=== PATIENT | male | born 1950 | race American Indian/Alaskan Native ===

== ENCOUNTER 2017-01-22 02:03 | Emergency (ER) | payer OTHER, MEDICARE ==
[2017-01-22] MEDS ORDERED: Aspirin 81 MG Tab.Chew PO ONE (02:09)
[2017-01-22] MEDS ORDERED: Albuterol/Ipratropium 3.0-0.5 MG/3 ML Neb Soln NEB ONE ×2 (02:16→03:33)
[2017-01-22] MEDS ORDERED: methylPREDNISolone Sodium Succinate 125 MG/2 ML SDV IVPUSH ONE (03:30)
[2017-01-22 05:42] VITALS: BP 176/88
--- NOTE | 2017-01-22 06:30 | EDM.PDOC ---
ED HISTORY OF PRESENT ILLNESS - General Chief Complaint: Cardiovascular Problem Stated Complaint: SHORTNESS OF BREATH, RACING HEART Time Seen by Provider: 01/22/17 02:15 - History of Present Illness INITIAL COMMENTS - FREE TEXT/NARRATIVE: HISTORY AND PHYSICAL: History of present illness: Patient 66-year-old male was a concern of shortness of breath patient denies chest pain nausea vomiting fever chills or other concern Review of systems: As per history of present illness and below otherwise all systems reviewed and negative. Past medical history: As per history of present illness and as reviewed below otherwise noncontributory. Surgical history: As per history of present illness and as reviewed below otherwise noncontributory. Social history: No reported history of drug or alcohol abuse. Family history: As per history of present illness and as reviewed below otherwise noncontributory. Physical exam: HEENT: Atraumatic, normocephalic, pupils reactive, negative for conjunctival pallor or scleral icterus, mucous membranes moist, throat clear, neck supple, nontender, trachea midline. Lungs: End expiratory wheezing noted bilaterally breath sounds equal bilaterally , chest nontender. Heart: S1S2, regular, negative for clicks, rubs, or JVD. Abdomen: Soft, nondistended, nontender. Negative for masses or hepatosplenomegaly. Negative for costovertebral tenderness. Pelvis: Stable nontender. Genitourinary: Deferred. Rectal: Deferred. Extremities: Atraumatic, negative for cords or calf pain. Neurovascular unremarkable. Neuro: Awake, alert, oriented. Cranial nerves II through XII unremarkable. Cerebellum unremarkable. Motor and sensory unremarkable throughout. Exam nonfocal. Diagnostics: CBC CMP troponin BNP PT/INR chest x-ray EKG Therapeutics: IV O2 monitor albuterol ipratropium nebulizer Impression: #1 dyspnea #2 COPD #3 hypoxemia Definitive disposition and diagnosis as appropriate pending reevaluation and review of above. - Related Data Allergies/ADRs: Allergies Allergy/AdvReac Type Severity Reaction Status Date / Time Penicillins Allergy Hives Verified 01/22/17 02:09 Home Meds: Home Meds Aspirin [[place] Aspirin] 81 mg PO DAILY 01/29/15 [History] Clopidogrel [Plavix] 75 mg PO QPM 01/29/15 [History] Lisinopril 20 mg PO DAILY 01/29/15 [History] Metoprolol Tartrate 75 mg PO BID 01/29/15 [History] atorvaSTATin Calcium [Atorvastatin Calcium] 40 mg PO BEDTIME 01/29/15 [History] Omeprazole 20 mg PO QAM 01/31/16 [History] Levothyroxine 0.5 tab PO ACBREAKFAST 01/22/17 [History] Testosterone Cypionate [Depo-Testosterone] 1 ml IM ASDIRECTED 01/22/17 [History] Past Medical History HEENT History: Reports: Hard of hearing, Impaired vision Cardiovascular History: Reports: High cholesterol, Hypertension, [place] - Infectious Disease History Infectious Disease History: Reports: Chicken pox, Measles, Mumps Other Infectious Disease History: childhood - Past Surgical History HEENT Surgical History: Reports: Other (see below) Other HEENT Surgeries/Procedures: Dentures Cardiovascular Surgical History: Reports: None Social & Family History - Family History Family Medical History: Noncontributory - Tobacco Use Smoking Status *Q: Current Every Day Smoker Years of Tobacco use: 45 Packs/Tins Daily: 1.5 - Caffeine Use Caffeine Use: Reports: Coffee, Soda Caffeine Use Comment: 10+ drinks/day - Alcohol Use Days Per Week of Alcohol Use: 0 Number of Drinks Per Day: 0 Total Drinks Per Week: 0 - Recreational Drug Use Recreational Drug Use: No Drug Use in Last 12 Months: No ED ROS GENERAL - Review of Systems Review Of Systems: ROS reveals no pertinent complaints other than HPI. ED EXAM, GENERAL - Physical Exam Exam: See Below (See dictation) Course - Vital Signs Text/Narrative:: Discuss with patient admission for observation patient declines feels better request discharge for follow up PA Last Recorded V/S: Last Vital Signs Temp 36.6 C 01/22/17 05:35 Pulse 87 01/22/17 05:35 Resp 20 01/22/17 05:35 BP 176/88 H 01/22/17 05:35 Pulse Ox 92 L 01/22/17 05:35 - Orders/Labs/Meds Orders: Active Orders 24 hr Category Date Time Status EKG 12 Lead [EKG Documentation Completion] [RC] STAT Care 01/22/17 02:07 Active RT Aerosol Therapy [RC] ASDIRECTED Care 01/22/17 02:16 Active RT Aerosol Therapy [RC] ASDIRECTED Care 01/22/17 03:33 Active Chest 1V Frontal [CR] Stat Exams 01/22/17 02:07 Taken Labs: Laboratory Tests 01/22/17 01/22/17 01/22/17 Range/Units 02:05 02:05 02:05 WBC 8.66 (4.0-11.0) K/uL RBC 5.58 (4.50-5.90) M/uL Hgb 17.2 H (13.0-17.0) g/dL Hct 50.1 H (38.0-50.0) % MCV 89.8 (80.0-98.0) fL MCH 30.8 (27.0-32.0) pg MCHC 34.3 (31.0-37.0) g/dL RDW Std Deviation 45.3 (28.0-62.0) fl RDW Coeff of Son 14 (11.0-15.0) % Plt Count 203 (150-400) K/uL MPV 10.20 (7.40-12.00) fL Neut % (Auto) 49.7 (48.0-80.0) % Lymph % (Auto) 40.1 H (16.0-40.0) % [place] % (Auto) 6.8 (0.0-15.0) % Eos % (Auto) 2.9 (0.0-7.0) % Baso % (Auto) 0.5 (0.0-1.5) % Neut # 4.3 (1.4-5.7) K/uL Lymph # 3.5 H (0.6-2.4) K/uL [place] # 0.6 (0.0-0.8) K/uL Eos # 0.3 (0.0-0.7) K/uL Baso # 0.0 (0.0-0.1) K/uL Nucleated RBC % 0.0 /100WBC Nucleated RBCs # 0 K/uL INR (0.86-1.11) Sodium 141 (136-146) mmol/L Potassium 3.6 (3.5-5.1) mmol/L Chloride 101 (98-110) mmol/L Carbon Dioxide 30 (21-31) mmol/L BUN 11 (6.0-23.0) mg/dL Creatinine 1.5 (0.6-1.5) mg/dL Est Cr Clr Drug Dosing 53.17 mL/min Estimated GFR (MDRD) 46.8 ml/min Glucose 97 (60-110) mg/dL Calcium 9.5 (8.8-10.8) mg/dL Total Bilirubin 1.2 (0.1-1.5) mg/dL AST 14 (5-40) IU/L ALT 15 (8-54) IU/L Alkaline Phosphatase 51 (40-150) Troponin I < 0.10 (0.0-0.29) NG/ML B-Natriuretic Peptide (<100) PG/ML Total Protein 7.5 (6.0-8.0) g/dL Albumin 4.2 (3.4-4.8) g/dL Globulin 3.3 (2.0-3.5) g/dL Albumin/Globulin Ratio 1.3 (1.3-2.8) 01/22/17 01/22/17 Range/Units 02:05 02:05 WBC (4.0-11.0) K/uL RBC (4.50-5.90) M/uL Hgb (13.0-17.0) g/dL Hct (38.0-50.0) % MCV (80.0-98.0) fL MCH (27.0-32.0) pg MCHC (31.0-37.0) g/dL RDW Std Deviation (28.0-62.0) fl RDW Coeff of Son (11.0-15.0) % Plt Count (150-400) K/uL MPV (7.40-12.00) fL Neut % (Auto) (48.0-80.0) % Lymph % (Auto) (16.0-40.0) % [place] % (Auto) (0.0-15.0) % Eos % (Auto) (0.0-7.0) % Baso % (Auto) (0.0-1.5) % Neut # (1.4-5.7) K/uL Lymph # (0.6-2.4) K/uL [place] # (0.0-0.8) K/uL Eos # (0.0-0.7) K/uL Baso # (0.0-0.1) K/uL Nucleated RBC % /100WBC Nucleated RBCs # K/uL INR 1.01 (0.86-1.11) Sodium (136-146) mmol/L Potassium (3.5-5.1) mmol/L Chloride (98-110) mmol/L Carbon Dioxide (21-31) mmol/L BUN (6.0-23.0) mg/dL Creatinine (0.6-1.5) mg/dL Est Cr Clr Drug Dosing mL/min Estimated GFR (MDRD) ml/min Glucose (60-110) mg/dL Calcium (8.8-10.8) mg/dL Total Bilirubin (0.1-1.5) mg/dL AST (5-40) IU/L ALT (8-54) IU/L Alkaline Phosphatase (40-150) Troponin I (0.0-0.29) NG/ML B-Natriuretic Peptide 100 (<100) PG/ML Total Protein (6.0-8.0) g/dL Albumin (3.4-4.8) g/dL Globulin (2.0-3.5) g/dL Albumin/Globulin Ratio (1.3-2.8) Meds: Medications Discontinued Medications Generic Name Dose Route Start Last Admin Trade Name Freq PRN Reason Stop Dose Admin Albuterol/Ipratropium 3 ml 01/22/17 02:16 01/22/17 02:36 Duoneb 3.0-0.5 Mg/3 Ml NEB 01/22/17 02:17 3 ml ONETIME ONE Administration Albuterol/Ipratropium 3 ml 01/22/17 03:33 01/22/17 03:44 Duoneb 3.0-0.5 Mg/3 Ml NEB 01/22/17 03:34 3 ml ONETIME ONE Administration Aspirin 324 mg 01/22/17 02:09 01/22/17 02:21 Aspirin PO 01/22/17 02:10 324 mg ONETIME ONE Administration Methylprednisolone Sodium Succinate 125 mg 01/22/17 03:30 01/22/17 03:44 Solu-Medrol IVPUSH 01/22/17 03:31 125 mg ONETIME ONE Administration Departure - Departure Time of Disposition: 06:29 Disposition: Home, Self-Care 01 Clinical Impression: COPD, Moderate chronic obstructive pulmonary disease Instructions: Chronic Obstructive Pulmonary Disease Exacerbation, [id number] Referrals: PCP,None [Primary Care Provider] - Forms: ED Department Discharge Additional Instructions: The following information is given to patients seen in the emergency department who are being discharged to home. This information is to outline your options for follow-up care. We provide all patients seen in our emergency department with a follow-up referral. The need for follow-up, as well as the timing and circumstances, are variable depending upon the specifics of your emergency department visit. If you don't have a primary care physician on staff, we will provide you with a referral. We always advise you to contact your personal physician following an emergency department visit to inform them of the circumstance of the visit and for follow-up with them and/or the need for any referrals to a consulting specialist. The emergency department will also refer you to a specialist when appropriate. This referral assures that you have the opportunity for followup care with a specialist. All of these measure are taken in an effort to provide you with optimal care, which includes your followup. Under all circumstances we always encourage you to contact your private physician who remains a resource for coordinating your care. When calling for followup care, please make the office aware that this follow-up is from your recent emergency room visit. If for any reason you are refused follow-up, please contact the [facility] emergency department at and asked to speak to the emergency department charge nurse. Followup [facility] as discussed return as needed as discussed Care Plan Goals: You have decided to get your oxygen equipment [facility]. You were given the prescription for the oxygen equipment please bring that with you. If your shortness of breath gets worse, please come back to the ER. If you change your mind, [employer] can issue you the oxygen equipment upon your request either in their store or in the ER ( [employer] operation staff will be called) - PLEASE BRING THE PRESCRIPTION. Take your inhalers using the aerochamber as demonstrated SMOKING makes your symptoms worse. Think about reducing your 1.5 - 2 pack per day habit, Better YET: QUIT SMOKING. - My Orders Last 24 Hours: My Active Orders 01/22/17 02:07 EKG 12 Lead [EKG Documentation Completion] [RC] STAT Chest 1V Frontal [CR] Stat 01/22/17 02:16 RT Aerosol Therapy [RC] ASDIRECTED 01/22/17 03:33 RT Aerosol Therapy [RC] ASDIRECTED - Assessment/Plan Last 24 Hours: My Active Orders 01/22/17 02:07 EKG 12 Lead [EKG Documentation Completion] [RC] STAT Chest 1V Frontal [CR] Stat 01/22/17 02:16 RT Aerosol Therapy [RC] ASDIRECTED 01/22/17 03:33 RT Aerosol Therapy [RC] ASDIRECTED
--- NOTE | 2017-01-22 20:21 | CR ---
EXAM DATE: 01/22/17 PATIENT'S AGE: 66 Patient: PILY BERNAL Facility: [place], [place] Site . Site : 1950 Study: XRay Chest [id number] 2:21:41 AM Ordering Physician: Doctor Cannon Final Report: INDICATION: Palpitations, SOB TECHNIQUE: Chest 1 view. COMPARISON: None. FINDINGS: Cardiovascular and mediastinum: Heart size and vasculature are normal in caliber and appearance. Mediastinum is within normal limits. Lungs and pleural space: Lungs are clear. No sign of infiltrate or mass. No sign of pleural effusion. No pneumothorax. Bones and soft tissues: No significant findings. IMPRESSION: Unremarkable chest. Dictated by: Toño Bermeo MD @ 01/22/2017 02:25:43 (Electronic Signature) Report Signed by Proxy and Original Signed Document filed in the Medical Record. ÁNGEL
== END 2017-01-22 05:36 | disposition home or self-care (01) ==
LOC: MW.ED 02:03
DX: J44.9 Chronic obstructive pulmonary disease, unspecified (principal); R09.02 Hypoxemia; E78.00 Pure hypercholesterolemia, unspecified; I10 Essential (primary) hypertension; I25.2 Old myocardial infarction; F17.210 Nicotine dependence, cigarettes, uncomplicated; Z88.0 Allergy status to penicillin; Z79.82 Long term (current) use of aspirin; Z79.899 Other long term (current) drug therapy
CPT/HCPCS: 36415; 71010; 80053; 83880; 84484; 85025; 85610; 93005; 94664; 96374; 99285; A9270; J2930; 99283

== ENCOUNTER 2017-08-16 13:08 | Emergency (ER) | payer OTHER ==
--- NOTE | 2017-08-16 13:26 | EDM.PDOC ---
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 Past medical history: As per history of present illness and as reviewed below otherwise noncontributory. Surgical history: As per history of present illness and as reviewed below otherwise noncontributory. Social history: No reported history of drug or alcohol abuse. Family history: As per history of present illness and as reviewed below otherwise noncontributory. Physical exam: Alert and oriented male who looks age-appropriate answering questions well nontoxic in appearance, hiccups are present HEENT: Atraumatic, normocehpalic, pupils reactive, negative for conjunctival pallor or scleral icterus, mucous membranes moist, throat clear, neck supple, nontender, trachea midline. Lungs: Clear to auscultation, breath sounds equal bilaterally, chest non tender. Heart: S1S2, regular, negative for clicks, rubs, or JVD. Abdomen: Soft, nondistended, nontender. Negative for masses or hepatossplenmegaly. Negative for costovertebral tenderness. Pelvis: Stable nontender. Genitourinary: Deferred. Rectal: Deferred Extremities: Atraumatic, negative for cords or calf pain. Neurovascular unremarkable. Neuro: Awake, alert, oriented. Cranial nerves II through XII unremarkable. Cerebellum unremarkable. Motor and sensory unremarkable throughout. Exam nonfocal. Diagnostics: [] Therapeutics: [] Impression: [Hiccups intractable] Plan: [Chlorpromazine 25 mg 3 times a day-4 times a day when necessary hiccups #16 no refill] Definitive disposition and diagnosis as appropriate pending reevaluation and review of above. - Related Data Allergies Allergy/AdvReac Type Severity Reaction Status Date / Time Penicillins Allergy Hives Verified 08/16/17 13:16 Home Meds: Home Meds Aspirin [[place] Aspirin] 81 mg PO DAILY 01/29/15 [History] Clopidogrel [Plavix] 75 mg PO QPM 01/29/15 [History] Lisinopril 20 mg PO DAILY 01/29/15 [History] Metoprolol Tartrate 75 mg PO BID 01/29/15 [History] atorvaSTATin Calcium [Atorvastatin Calcium] 40 mg PO BEDTIME 01/29/15 [History] Omeprazole 20 mg PO QAM 01/31/16 [History] Levothyroxine 0.5 tab PO ACBREAKFAST 01/22/17 [History] Testosterone Cypionate [Depo-Testosterone] 1 ml IM ASDIRECTED 01/22/17 [History] Past Medical History HEENT History: Reports: Hard of Hearing, Impaired Vision Cardiovascular History: Reports: High Cholesterol, Hypertension, [place] - Infectious Disease History Infectious Disease History: Reports: Chicken Pox, Measles, Mumps Other Infectious Disease History: childhood - Past Surgical History HEENT Surgical History: Reports: Other (See Below) Social & Family History - Family History Family Medical History: Noncontributory - Tobacco Use Smoking Status *Q: Current Every Day Smoker Years of Tobacco use: 45 Packs/Tins Daily: 1.5 - Caffeine Use Caffeine Use: Reports: Coffee, Soda Caffeine Use Comment: 10+ drinks/day - Alcohol Use Days Per Week of Alcohol Use: 0 Number of Drinks Per Day: 0 Total Drinks Per Week: 0 - Recreational Drug Use Recreational Drug Use: No Drug Use in Last 12 Months: No ED ROS GENERAL - Review of Systems Review Of Systems: ROS reveals no pertinent complaints other than HPI. ED EXAM, GENERAL - Physical Exam Exam: See Below (See dictation) Course - Vital Signs Last Recorded V/S: Last Vital Signs Temp 36.5 C 08/16/17 13:17 Pulse 79 08/16/17 13:17 Resp 18 08/16/17 13:17 BP 153/69 H 08/16/17 13:17 Pulse Ox 96 08/16/17 13:17 Departure - Departure Time of Disposition: 13:24 Disposition: Home, Self-Care 01 Condition: Good Clinical Impression: Intractable hiccups - Discharge Information Referrals: Jana Andrews [employer] [Primary Care Provider] - Additional Instructions: The following information is given to patients seen in the emergency department who are being discharged to home. This information is to outline your options for follow-up care. We provide all patients seen in our emergency department with a follow-up referral. The need for follow-up, as well as the timing and circumstances, are variable depending upon the specifics of your emergency department visit. If you don't have a primary care physician on staff, we will provide you with a referral. We always advise you to contact your personal physician following an emergency department visit to inform them of the circumstance of the visit and for follow-up with them and/or the need for any referrals to a consulting specialist. The emergency department will also refer you to a specialist when appropriate. This referral assures that you have the opportunity for followup care with a specialist. All of these measure are taken in an effort to provide you with optimal care, which includes your followup. Under all circumstances we always encourage you to contact your private physician who remains a resource for coordinating your care. When calling for followup care, please make the office aware that this follow-up is from your recent emergency room visit. If for any reason you are refused follow-up, please contact the [facility] emergency department at and asked to speak to the emergency department charge nurse. Written prescription for chlorpromazine 25 mg 1 tablet 3 times a day to 4 times a day when necessary hiccups #16 with no refill
[2017-08-16 13:37] VITALS: BP 139/84
== END 2017-08-16 13:34 | disposition home or self-care (01) ==
LOC: MW.ED 13:08
DX: R06.6 Hiccough (principal); E78.00 Pure hypercholesterolemia, unspecified; I10 Essential (primary) hypertension; F17.210 Nicotine dependence, cigarettes, uncomplicated; Z88.0 Allergy status to penicillin; Z79.82 Long term (current) use of aspirin; Z79.899 Other long term (current) drug therapy
CPT/HCPCS: 99282; 99283